=== PATIENT | female | born 1980 | race African-American/Black ===

== ENCOUNTER 2016-08-17 18:21 | Emergency (ER) | payer MEDICAID ==
[~2016-08-17] VITALS: Wt 56.8 kg
[2016-08-17] MEDS ORDERED: ONDANSETRON (ODT) 4 MG TAB ODT STA (19:54)
[2016-08-17] MEDS ORDERED: HYDROCODONE/APAP (5/325) TAB PO ONE (20:00)
[2016-08-17 20:18] LABS: URINE BLOOD (Dip) POC Trace-lysed (NEGATIVE)
--- NOTE | 2016-08-17 20:40 | RADRPT ---
PROCEDURE: CT brain without contrast CLINICAL INDICATION: Headaches TECHNIQUE: A CT of the brain was performed utilizing axial sections from the skull base through th e vertex without contrast. Sagittal and coronal images were also reformatted. The exam CTDIvol = 39. 46 mGy and DLP = 634.23 mGy-cm. COMPARISON: None available FINDINGS: No acute intracranial hemorrhage is identified. There is no mass effect or midline shift. No extra -axial fluid collection is seen. The ventricles and sulci are within normal limits for size and con figuration. The density of the brain is within normal limits. Anderson-white differentiation is preser joi. The osseous structures are unremarkable. The mastoid air cells and visualized paranasal sinuses are clear. RPTAT:HJJR IMPRESSION: Unremarkable noncontrast CT of the brain. Physician Maranda Date Time Electronically viewed and signed by Physician Maranda on 08/17/2016 20:39 /
[2016-08-17] MEDS ORDERED: IBUP-1542 PO (21:42)
[2016-08-17] MEDS ORDERED: ONDA4TAB8 PO (21:42)
[2016-08-17] MEDS ORDERED: CYCL-319 PO (21:42)
[2016-08-17] MEDS ORDERED: HYDR-902 PO (21:42)
[2016-08-17] MEDS ORDERED: KETOROLAC 15 MG INJ IM STA (22:14)
[2016-08-17 23:01] VITALS: BP 139/85; PULSE 70; RESP 20; TEMP 98
--- NOTE | 2016-08-18 03:22 | ERD ---
ER Documentation Chief Complaint Date/Time DATE: 08/18/16 TIME: 03:14 Chief Complaint HEADACHE SINCE 2 DAYS. GETTING WORSE TODAY .WITH NECK PAIN. NO NEURO DEF HPI Patient is a 35-year-old female complaining of occipital pain for 1 day associated with nausea and decreased range of range of motion of the neck area. Patient also complains of shoulder pain one half months ago. Denies any recent history of fever, chest pain, shortness of breath, dizziness, vomiting, dysuria, diarrhea, photophobia, sore throat. Patient saw her doctor yesterday and was prescribed with Z-Teodoro, Robitussin and Zyrtec. Patient states that her symptoms has worsened since yesterday. ROS All systems reviewed and are negative except as per history of present illness. Medications Home Meds Active Scripts Ibuprofen* (Motrin*) 600 Mg Tab, 600 MG PO Q6H Y for PAIN AND OR ELEVATED TEMP, #30 TAB Prov:ANN BENTLEY 08/17/16 Cyclobenzaprine Hcl* (Cyclobenzaprine Hcl*) 10 Mg Tablet, 10 MG PO TID, #30 TAB Prov:ANN BENTLEY 08/17/16 Hydrocodone/Acetaminophen (Rhodelia 10-325 Tablet) 1 Each Tablet, 1 TAB PO Q6H Y for PAIN, #10 TAB Prov:ANN BENTLEY 08/17/16 Ondansetron Hcl* (Zofran*) 4 Mg Tablet, 4 MG PO Q6H for NAUSEA AND/OR VOMITING, #30 TAB Prov:ANN BENTLEY 08/17/16 Allergies Allergies: Coded Allergies: No Known Allergy (Unverified , 08/17/16) PMhx/Soc Medical and Surgical Hx: pt denies Medical Hx, pt denies Surgical Hx Hx Alcohol Use: No Hx Substance Use: No Hx Tobacco Use: No Smoking Status: Never smoker Physical Exam Vitals Vital Signs Date Time Temp Pulse Resp B/P Pulse Ox O2 Delivery O2 Flow Rate FiO2 08/17/16 23:01 98.0 70 20 139/85 100 08/17/16 18:47 99.5 94 20 142/85 100 Physical Exam Physical Exam CONST: Well-developed, well-nourished, in no acute distress. Nontoxic in appearance. HEENT: Atraumatic. Normal Conjunctiva. EOM intact. TM intact. External ear is normal. Clear oropharnyx without erythema. No Uvular deviation. Moist mucous membranes. Decreased neck flexion and extension due to pain. No submandibular induration. RESP: Clear to auscultation bilaterally. No wheezing. CARDIO: Regular rate and rhythm, no murmurs. ABD: Soft, non tender, non distended. Normal bowel sounds. No McBurney's point tenderness. No guarding or rigidity. No peritoneal signs. SKIN: No petechiae or rashes. BACK: No midline or flank tenderness. EXT: No cyanosis or edema. Distal pulses equal and bilateral. NEURO: Awake and alert, appropriate for age Results 24 hrs Laboratory Tests Test 08/17/16 20:21 Bedside Urine Blood Trace-lysed Bedside Urine Glucose (UA) Negative Bedside Urine Ketones (LAB) Negative Bedside Urine Leukocyte Esterase (L Negative Bedside Urine Nitrite (LAB) Negative Bedside Urine Protein (LAB) Negative Bedside Urine pH (LAB) 6.0 Current Medications Medications (Trade) Dose Ordered Sig/Laura Route PRN Reason Start Time Stop Time Status Last Admin Dose Admin Ondansetron HCl (Zofran Odt) 4 mg ONCE STAT ODT 08/17/16 19:54 08/17/16 19:57 DC 08/17/16 20:51 Acetaminophen/ Hydrocodone Bitart (Rhodelia (5/325)) 1 tab ONCE ONCE PO 08/17/16 20:00 08/17/16 20:01 DC 08/17/16 20:51 Ketorolac Tromethamine (Toradol) 15 mg ONCE STAT IM 08/17/16 22:14 08/17/16 22:15 DC 08/17/16 22:45 Procedures/MDM EMERGENCY DEPARTMENT COURSE/MEDICAL DECISION MAKING This is a 35-year-old female who comes to the emergency room secondary to complaints of headache and neck pain since yesterday. The patient was given Rhodelia, Zofran and Toradol IM in the department. On re- evaluation, the patient's symptoms improved. CT had was done and was interpreted by a radiologist. Results shows unremarkable. My primary diagnosis is headache. Secondary diagnosis is nausea Differential diagnoses considered, included but not limited to [place], intracranial bleed, migraine, pneumonia, bronchitis, influenza, upper respiratory infection, asthma, pharyngitis, peritonsillar abscess, otitis media, otitis externa. Pt is afebrile and hemodynamically stable upon reassessment. The patient was discharged for outpatient management with a prescription for Rhodelia, ibuprofen, Zofran and Flexeril. The patient was advised to followup with their PMD in 1-2 days and to return to the Emergency Department if there are any new or worsening symptoms. The patient understood and agreed with the diagnosis, treatment and plan. Patient is stable for discharge at this time. Departure Diagnosis: Primary Impression: Headache Headache type: unspecified Headache chronicity pattern: acute headache Intractability: not intractable Qualified Code: R51 - Acute nonintractable headache, unspecified headache type Additional Impression: Nausea Condition: Stable Patient Instructions: Self-Care for Headaches, Nausea, Headache, Unspecified Referrals: COMMUNITY CLINICS YOU HAVE RECEIVED A MEDICAL SCREENING EXAM AND THE RESULTS INDICATE THAT YOU DO NOT HAVE A CONDITION THAT REQUIRES URGENT TREATMENT IN THE EMERGENCY DEPARTMENT. FURTHER EVALUATION AND TREATMENT OF YOUR CONDITION CAN WAIT UNTIL YOU ARE SEEN IN YOUR DOCTORS OFFICE WITHIN THE NEXT 1-2 DAYS. IT IS YOUR RESPONSIBILITY TO MAKE AN APPOINTMENT FOR FOLOW-UP CARE. IF YOU HAVE A PRIMARY DOCTOR --you should call your primary doctor and schedule an appointment IF YOU DO NOT HAVE A PRIMARY DOCTOR YOU CAN CALL OUR PHYSICIAN REFERRAL HOTLINE AT IF YOU CAN NOT AFFORD TO SEE A PHYSICIAN YOU CAN CHOSE FROM THE FOLLOWING [facility] [address] [facility]. [facility] [address] [facility]. [facility] [address] [facility]. [facility] [address] [facility]. [facility] [address] [facility]. [facility]. [address] [facility]. [facility] YOU HAVE RECEIVED A MEDICAL SCREENING EXAM AND THE RESULTS INDICATE THAT YOU DO NOT HAVE A CONDITION THAT REQUIRES URGENT TREATMENT IN THE EMERGENCY DEPARTMENT. FURTHER EVALUATION AND TREATMENT OF YOUR CONDITION CAN WAIT UNTIL YOU ARE SEEN IN YOUR DOCTORS OFFICE WITHIN THE NEXT 1-2 DAYS. IT IS YOUR RESPONSIBILITY TO MAKE AN APPOINTMENT FOR FOLOW-UP CARE. IF YOU HAVE A PRIMARY DOCTOR --you should call your primary doctor and schedule and appointment IF YOU DO NOT HAVE A PRIMARY DOCTOR YOU CAN CALL OUR PHYSICIAN REFERRAL HOTLINE AT . IF YOU CAN NOT AFFORD TO SEE A PHYSICIAN YOU CAN CHOSE FROM THE FOLLOWING [facility] INSTITUTIONS: [facility] [address] [place] [address] [facility] [address] [place] [address] [facility] [address] [place] [address] Additional Instructions: Follow-up with your primary care physician in 1-2 days. Return to the emergency department immediately should you have any new or worsening symptoms, uncontrolled fevers, or other unexplained symptoms. Take all medications as directed. ANN BENTLEY Aug 18, 2016 03:22
== END 2016-08-17 23:06 | disposition home or self-care (01) ==
LOC: FTE 18:21
DX: R51 Headache (principal); R11.0 Nausea
CPT/HCPCS: 70450; 81003; 96372; J1885; Z7502; Z7610